=== PATIENT | male | born 1985 | race Caucasian/White ===

== ENCOUNTER 2025-02-24 12:35 | Outpatient (CLI) | payer OTHER, SELFPAY ==
--- NOTE | ~2025-02-24 | MR_ITS ---
MRI of the cervical spine Clinical History: Radiculopathy Technique: Axial T2-weighted and gradient images, and sagittal T1-weighted, T2-weighted, and STIR oz ges were acquired. Findings: There is no fracture or subluxation of the cervical spine. There is straightening of the no rmal cervical lordosis. Vertebral bodies otherwise maintain normal height and alignment. No bone felice ow signal abnormality seen. At C2-C3, there is no disc bulge or herniation. No spinal canal stenosis, cord compression, or neural foraminal narrowing. At C3-C4, there is minimal disc osteophyte complex with mild facet hypertrophy. There is bilateral ne ural foraminal narrowing. No canal stenosis or cord compression. At C4-C5, there is minimal disc osteophyte complex and mild facet arthropathy. No definite canal sten osis or cord compression. Possible minimal left neural foraminal narrowing. Right neural foramen pres erved. At C5-C6, there is minimal disc bulge. No spinal canal stenosis, cord compression, or neural foramina l narrowing. At C6-C7, there is degenerative disc narrowing with mild disc osteophyte complex. There is bilateral neural foraminal narrowing. No canal stenosis or cord compression. No abnormal signal seen in the spinal cord. Paravertebral soft tissues are unremarkable. Impression: Degenerative spondylosis overall, as detailed above. Reviewed, dictated and finalized at [facility]. Impression: Degenerative spondylosis overall, as detailed above.
--- NOTE | ~2025-02-24 | MR_ITS ---
MRI of the thoracic spine Clinical History: Back pain, radiculopathy Technique: Axial T2-weighted and gradient images, and sagittal T1-weighted, T2-weighted, and STIR oz ges were acquired. Findings: There is no fracture or subluxation of the thoracic spine. Vertebral bodies maintain normal height and alignment. No suspicious bone marrow signal abnormality seen. There are areas of mild deg enerative disc narrowing at the lower thoracic spine. There is multilevel facet arthropathy at the lo wer thoracic spine. No spinal canal stenosis or cord compression identified at any thoracic level. No definite neural for aminal narrowing identified in the thoracic spine. No abnormal signal seen in the spinal cord. Paravertebral soft tissues are unremarkable. Impression: Minimal degenerative spondylosis, as above. Reviewed, dictated and finalized at location . Impression: Minimal degenerative spondylosis, as above.
== END 2025-02-24 12:36 | disposition home or self-care (01) ==
LOC: GOSHIMG 12:40
DX: M47.814 Spondylosis without myelopathy or radiculopathy, thoracic region (principal); M47.812 Spondylosis without myelopathy or radiculopathy, cervical region
CPT/HCPCS: 72141; 72146